=== PATIENT | male | born 1930 | race Caucasian/White ===

== ENCOUNTER 2017-05-12 13:22 | Emergency (ER) | payer MEDICARE, MEDICAID ==
--- NOTE | 2017-05-29 16:41 | ER ---
ADMIT: 05/12/2017 RM/LOC: ER [facility] MR#: [id number] [address] [facility] [address] [place], [place] [id number] MICHELA ORTEZ [address] [place] [address] Emergency Room Report SEX: M AGE: 87 : 1930 DATE: 05/12/2017 An 87-year-old gentleman transferred from [place] because of decreased mental status. 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 He opens his eyes, follows commands, but will not speak. Stroke protocol was initiated. A UA was also obtained when the catheter was placed and over 500 mL of urine was drained. With the drainage of the urine, the patient became alert, appropriate, and angry saying he was not told why he was here. He is not certain why anyone would send him here and demanded to be returned to the longterm promptly. Discussed the need to leave the Mukherjee catheter and had to follow up with Dr. Neumann tomorrow. He said he was agreeable to that as long as he can go home, but he would not stay in the hospital. See T-sheet for history and physical. His CBC was normal. Chemistry with glucose of 220. UA was unremarkable. He is being discharged back to the longterm. DIAGNOSIS: Acute urinary retention. Encouraged to take an aspirin every day, and to follow up with Dr. Neumann tomorrow. Ferdinand Graves MD/ [facility] JOB #: [id number] CC: Yovani Yu MD, Attending Physician Reji Neumann MD, Family Physician
== END 2017-05-12 16:14 | disposition home or self-care (01) ==
LOC: ER 13:22
PROC: 0T9B70Z Drainage of Bladder with Drainage Device, Via Natural or Artificial Opening (ICD-10-PCS; principal; 2017-05-12)
DX: R33.9 Retention of urine, unspecified (principal); E11.9 Type 2 diabetes mellitus without complications; I10 Essential (primary) hypertension; J44.9 Chronic obstructive pulmonary disease, unspecified; Z88.0 Allergy status to penicillin; Z88.1 Allergy status to other antibiotic agents; Z88.8 Allergy status to other drugs, medicaments and biological substances; Z79.4 Long term (current) use of insulin; Z79.82 Long term (current) use of aspirin; Z79.899 Other long term (current) drug therapy